=== PATIENT | female | born 1995 | race American Indian/Alaskan Native ===

== ENCOUNTER 2021-07-28 14:35 | Emergency (ER) | payer MEDICAID | END 2021-07-28 16:35 | disposition home or self-care (01) | LOC: JP.ED 14:35 | DX: S93.401A Sprain of unspecified ligament of right ankle, initial encounter (principal); Z72.0 Tobacco use; X50.1XXA Overexertion from prolonged static or awkward postures, initial encounter | CPT/HCPCS: 73610-26-RT; 73610-RT; 99282; 99283-25 ==

== ENCOUNTER 2022-04-21 20:39 | Emergency (ER) | payer MEDICAID | END 2022-04-21 22:00 | disposition home or self-care (01) | LOC: JP.ED 20:39 | DX: K04.7 Periapical abscess without sinus (principal); Z79.899 Other long term (current) drug therapy; Z79.84 Long term (current) use of oral hypoglycemic drugs; Z90.49 Acquired absence of other specified parts of digestive tract | CPT/HCPCS: 99282 ==